=== PATIENT | female | born 1970 | race Caucasian/White ===

== ENCOUNTER → 2016-09-18 | Outpatient (CLI) | payer BC ==
--- NOTE | 2016-09-18 09:05 | REP ---
Clinical: Lower back pain. Technique: AP, lateral, bilateral oblique and coned-down views of the lumbosacral spine. Comparison: 09/26/2001. Findings: Mild chronic levoconvex scoliosis is again appreciated and unchanged. There is no evidence for spondylolysis or spondylolisthesis. Alignment and lordosis in the sagittal plane is stable and normal. Mild disc space narrowing and endplate sclerosis at the L5-S1 level is similar to prior examination. Remainder examination is normal for age. Impression: Chronic levoconvex scoliosis unchanged. Mild disc space narrowing and endplate sclerosis at the L5-S1 level.
== END ==
LOC: M CLY 07:59
PROVIDERS: ATTEND Family Medicine
DX: M41.9 Scoliosis, unspecified (principal)

== ENCOUNTER → 2017-04-14 | Outpatient (REF) | payer BC | LOC: M SFHCCLAY 09:11 | PROVIDERS: ATTEND Family Medicine | DX: J06.9 Acute upper respiratory infection, unspecified (principal) ==

== ENCOUNTER → 2018-08-19 | Outpatient (REF) | payer BC ==
[2018-08-19 13:02] LABS: HEMATOCRIT 40.4 % (36.0-47.0); HEMOGLOBIN 13.6 g/dl (12.0-15.5); MEAN CORPUSCULAR HEMOGLOBIN 29.2 pg (27.0-33.0); MEAN CORPUSCULAR HGB CONC 33.7 g/dl (32.0-36.5); MEAN CORPUSCULAR VOLUME 86.7 fl (80.0-96.0); PLATELET COUNT, AUTOMATED 295 10^3/uL (150-450); RED BLOOD COUNT 4.66 10^6/uL (4.00-5.40); WHITE BLOOD COUNT 9.3 10^3/uL (4.0-10.0)
[2018-08-19 13:21] LABS: ALBUMIN 3.6 GM/DL (3.2-5.2); ALT/SGPT 20 U/L (12-78); BILIRUBIN,TOTAL 0.3 MG/DL (0.2-1.0); BLOOD UREA NITROGEN 10 MG/DL (7-18); CALCIUM LEVEL 8.5 MG/DL (8.5-10.1); CARBON DIOXIDE LEVEL 26 MEQ/L (21-32); CHLORIDE LEVEL 105 MEQ/L (98-107); CHOLESTEROL LEVEL 204 MG/DL (<200); CHOLESTEROL RISK RATIO 3.849 (<5); CREATININE FOR GFR 0.74 MG/DL (0.55-1.30); GLOMERULAR FILTRATION RATE > 60.0 (>58); GLUCOSE, FASTING 102 MG/DL (70-100); HDL CHOLESTEROL 53 MG/DL (>40); LDL CHOLESTEROL 129 MG/DL (<100); NON-HDL-C 151 MG/DL; POTASSIUM SERUM 4.1 MEQ/L (3.5-5.1); SODIUM LEVEL 138 MEQ/L (136-145); TOTAL PROTEIN 6.9 GM/DL (6.4-8.2); TRIGLYCERIDES LEVEL 109 MG/DL (<150)
== END ==
LOC: M SFHCCLAY 08:37
PROVIDERS: ATTEND Nurse Practitioner Family
DX: J45.909 Unspecified asthma, uncomplicated (principal); Z13.6 Encounter for screening for cardiovascular disorders; Z13.29 Encounter for screening for other suspected endocrine disorder

== ENCOUNTER → 2018-12-12 | Outpatient (REF) | payer BC ==
[2018-12-12 11:31] LABS: ALBUMIN 3.6 GM/DL (3.2-5.2); ALT/SGPT 19 U/L (12-78); BILIRUBIN,TOTAL 0.4 MG/DL (0.2-1.0); BLOOD UREA NITROGEN 13 MG/DL (7-18); CALCIUM LEVEL 8.7 MG/DL (8.5-10.1); CARBON DIOXIDE LEVEL 26 MEQ/L (21-32); CHLORIDE LEVEL 108 MEQ/L (98-107); CHOLESTEROL LEVEL 204 MG/DL (<200); CHOLESTEROL RISK RATIO 3.187 (<5); CREATININE FOR GFR 0.77 MG/DL (0.55-1.30); GLOMERULAR FILTRATION RATE > 60.0 (>58); GLUCOSE, FASTING 93 MG/DL (70-100); HDL CHOLESTEROL 64 MG/DL (>40); LDL CHOLESTEROL 117 MG/DL (<100); NON-HDL-C 140 MG/DL; POTASSIUM SERUM 4.1 MEQ/L (3.5-5.1); SODIUM LEVEL 139 MEQ/L (136-145); TOTAL PROTEIN 7.2 GM/DL (6.4-8.2); TRIGLYCERIDES LEVEL 114 MG/DL (<150)
== END ==
LOC: M SFHCCLAY 08:42
PROVIDERS: ATTEND Family Medicine
DX: E78.2 Mixed hyperlipidemia (principal)

== ENCOUNTER → 2019-01-18 | Outpatient (CLI) | payer BC ==
--- NOTE | 2019-01-23 07:58 | ECHO ---
DATE OF STUDY: 01/18/2019 REFERRING PHYSICIAN: Dr. Erick Betancur INDICATION: Chemotherapy drugs that may affect the heart. HEIGHT: 64 inches. WEIGHT: 147 pounds. 2D MEASUREMENTS: Left atrium 3.2 cm Ventricular septum 0.76 cm Posterior wall 0.92 cm Left ventricle diastole 3.9 cm Aortic root 2.7 cm Inferior vena cava 1.3 cm ( more than 50% respiratory variation) DOPPLER MEASUREMENTS: LVOT velocity 107 cm/s LVOT VTI 20.9 cm Mitral E velocity 57.7 cm/s Mitral A velocity 65.0 cm/s Mitral deceleration time 229 ms Trace tricuspid regurgitation. Estimated right ventricle systolic pressure 26 mmHg assuming a right atrial pressure of 5 mmHg. Very mild pulmonic regurgitation Pulmonary artery acceleration time was 8 ms. MITRAL ANNULAR TISSUE DOPPLER: E prime septal 8.3 cm/s E prime lateral 14.4 cm/s DESCRIPTION: Rhythm was sinus. Image quality was fair. This was a 2D, M mode, color flow Doppler and pulse wave Doppler examination and included mitral annular tissue Doppler. CONCLUSIONS: 1. Normal left ventricle internal dimensions and wall thickness. Normal regional LV wall motion and wall thickening. Normal LV systolic function. LVEF 68% (3D). Normal LV diastolic function. 2. No pericardial effusion. 3. Very mild aortic valve sclerosis of a three-cuspid aortic valve. No aortic regurgitation. 4. Otherwise, normal appearing echocardiogram Doppler findings. MTDD
== END ==
LOC: M CARPUL 15:31
PROVIDERS: ATTEND Internal Medicine
DX: C50.412 Malignant neoplasm of upper-outer quadrant of left female breast (principal)

== ENCOUNTER → 2019-06-20 | Outpatient (CLI) | payer BC ==
--- NOTE | 2019-06-20 14:17 | ECHO ---
DATE OF PROCEDURE: 06/20/2019 REFERRING PHYSICIAN: Dr. Erick Betancur DO INDICATION: Chemotherapy. HEIGHT: 160 cm. WEIGHT: 68 kg. DIMENSIONS: IVS 0.7 LV 4.2 LVPW 0.9 LA 3.6 Aorta 2.6 IVC 1.2 Mitral E wave velocity 69, A wave 63 E prime septal 9.6 E prime lateral 11.0 FINDINGS: The study is of acceptable technical quality. The patient is in sinus rhythm. Left ventricle is of normal size and systolic function, I do not appreciate any segmental wall motion abnormalities. Computer calculated LVEF was 69%, which seems believable. Right ventricle also appears normal size and systolic function. Both atria appear normal. Aortic valve has three cusps and has normal mobility. Mitral valve is freely mobile. There is poorly visualized echodensity attached to anterior mitral leaflet, which in appropriate clinical setting potentially could represent small vegetation. Tricuspid valve appears normal. Pulmonic valve was not seen. Trace pericardial effusion is noted. Inferior vena cava is normal size. Aortic root and aortic arch appear normal. Doppler interrogation reveals competent aortic and mitral valve. There is trace tricuspid insufficiency. Calculated pulmonary artery pressure is within normal limits. Mitral inflow pattern and tissue Doppler imaging of mitral annulus reveal normal diastolic function. CONCLUSIONS: 1. Study is of acceptable technical quality. 2. Normal LV size with normal LV systolic and diastolic function. 3. No hemodynamically significant valvular disease. 4. Poorly visualized echodensity attached to anterior mitral leaflet that in appropriate clinical setting could represent vegetation. Due to limited visualization I cannot rule out that this actually represents an artifact. 5. Trace pericardial effusion. 6. Normal central venous pressure and likely normal pulmonary artery pressure under COMMENTS: If high clinical suspicion for bacterial endocarditis further evaluation is warranted. MTDD
== END ==
LOC: M CARPUL 11:09
PROVIDERS: ATTEND Internal Medicine
DX: C50.412 Malignant neoplasm of upper-outer quadrant of left female breast (principal)

== ENCOUNTER → 2019-07-27 | Outpatient (CLI) | payer BC ==
[~2019-07-27] MED LIST: CALC-333 PO; DECA4TAB PO; FLINCHW16 PO; OCUV1CAP4 PO; OLIV250C PO; PROB1CAP PO; SOOT1DRO OP; [UNRECOGNIZED DRUG - CODE] PO; [UNRECOGNIZED DRUG - CODE] PO
--- NOTE | 2019-07-29 09:40 | RADONC ---
RADIATION ONCOLOGY CONSULTATION NOTE DATE: 07/27/2019 CHART #: [id number] DIAGNOSIS: Left breast cancer. STAGE: I A, pT1c, pN1c, cM0, moderately differentiated grade 2, ER positive, AR positive, HER2 equivocal, Oncotype score 13. ECOG PERFORMANCE STATUS: 0. CONSULTATION NOTE: Ms. Naik is a very pleasant 49-year-old white female with the diagnosis of what appears to be a pathologic stage I A, pT1c, pN1c, cM0, grade 2, moderately differentiated infiltrating ductal carcinoma of the left breast who is presenting to us today status post right simple nipple sparing mastectomy and right sentinel lymph node axillary biopsy as well as left nipple sparing mastectomy and left axillary node dissection after positive sentinel nodes, as well as, systemic therapy consisting of carboplatin. She is now presenting for consideration of postoperative radiation therapy in attempt to increase the likelihood of achieving local control. HISTORY OF PRESENT ILLNESS: The patient was in her usual state of health until routine mammogram was done on 12/16/2018 and showed a solid mass detected on ultrasound in the left breast in the 2 o'clock position. Subsequent surgery was done and a 1.4 cm to 2 cm invasive ductal carcinoma was seen in the left breast. The tumor was moderately differentiated. The nipple margin was negative for carcinoma. There was a 0.2 cm margin superficially. DCIS was less than 0.1 cm from the nipple margin. Metastatic carcinoma involved at least three axillary lymph nodes including two sentinel lymph nodes. The sentinel lymph node deposits measured 0.9 cm each in two lymph nodes. A third deposit spanned 0.5 cm. There was thought to be a possible fourth lauryn metastasis as well. Extranodal extension was present and associated with the sentinel node. HER2 was positive by FISH. The patient had undergone a nipple sparing mastectomy. She was subsequently seen by Erick Betancur DO at [facility] and has undergone systemic therapy. She reports that her last chemotherapy was on July 21 and she is now presenting to us for discussion of postoperative radiation therapy in attempt to increase the likelihood of achieving local control. PAST MEDICAL HISTORY: The patient's past medical history is positive for a miscarriage as well as D and Cs. She has been in otherwise good health. ALLERGIES: The patient is allergic to CIPRO. SOCIAL HISTORY: The patient does not smoke cigarettes. She drinks alcohol socially. FAMILY HISTORY: The patient's family history is noncontributory. The patient was adopted and does not know her family history. REVIEW OF SYSTEMS: The patient's review of systems is positive for some decreased energy, but is otherwise noncontributory. Denies nausea, vomiting, fevers, chills, night sweats, diplopia, headaches, anxiety or depression, anorexia, weight loss, visual disturbances, chest pain, urinary or bowel difficulties, bone pain, or neurological problems. PHYSICAL EXAMINATION: The patient is a well-developed, well-nourished female in no acute distress. HEENT exam is normocephalic, atraumatic. Extraocular movements are intact. There is no palpable cervical, supraclavicular, infraclavicular, axillary, or inguinal lymphadenopathy present. Lungs are clear to auscultation and percussion. Heart has a regular rate and rhythm. Abdomen is benign with no hepatosplenomegaly, masses, or tenderness. Breast examination reveals no masses or discharge bilaterally. Skeletal examination reveals no tenderness to pressure or percussion of the bony skeleton. Extremities reveal no clubbing, cyanosis, or edema. Neurologic exam is grossly intact, as is the remainder of the physical examination. MEDICAL NECESSITY: IMRT/IGRT is clinically indicated for a highly conformal dose planning regard. The target volume is in close proximity to critical structures, such as the heart, lungs, spinal cord, stomach, and esophagus. The volume of interest must be covered with narrow margins to adequately protect immediately adjacent structures. The plan requires interpretations of complex testing such as CT localization. As noted above, special planning (IMRT) and localizing [IGRT) is required and essential to maximize protect sensitive normal tissue structures which cannot be accomplished using conventional three-dimensional planning. ASSESSMENT: I do believe this patient is a candidate for external beam radiation therapy and I have so informed her. I have discussed with this patient in detail the potential benefits as well as possible acute and chronic sequelae of external beam radiation therapy. We discussed logistics of treatment planning, simulation and subsequent fractionated daily radiation treatments. I specifically believe this patient is a candidate for treatment in light of the fact that she may have four axillary lymph nodes, but more importantly that there was extranodal extension present. In addition, she has very close margins, especially just underneath the nipple and superficially for both DCIS and invasive carcinoma. I believe this patient overall would benefit with increased local control with radiation. Thank you for allowing us to participate in the care of this very pleasant woman. If I could be of any further assistance or provide you with any information, please feel free to contact me at anytime. I am scheduling the patient for simulation next week so that the treatment plan can be completed in time to begin her in the mid week of August 14. The patient is requesting that we please complete therapy by earlier in September so that she can go with her daughter on spring to [place]. We will make every attempt to accommodate here without sacrificing quality of care. cc: DO Sarah Sheehan MD Edward J Wyluda, DO
== END ==
LOC: M ONCR 13:45
PROVIDERS: ATTEND Radiology Radiation Oncology
DX: C50.912 Malignant neoplasm of unspecified site of left female breast (principal)

== ENCOUNTER 2019-08-25 08:59 | Outpatient (RCR) | payer BC ==
--- NOTE | 2019-08-02 14:15 | RADONC ---
RADIATION ONCOLOGY SIMULATION NOTE DATE OF SERVICE: 08/02/2019 RADIATION ONCOLOGY SIMULATION NOTE: Ms. Naik was taken to the CT scan for CT simulation of her left breast and lymph node drainage site field. CT was accomplished without difficulty or discomfort. Radiation treatment planning is underway, and radiation treatments will begin subsequently. An immobilization device was created and will be used throughout the course of treatment. It was created without difficulty or discomfort. I was physically present throughout the course of CT simulation.
--- NOTE | 2019-08-22 08:58 | RADONC ---
RADIATION ONCOLOGY PROGRESS NOTE DATE: 08/21/2019 CHART #: [id number] Ms. Naik is presently at a dose of 720 cGy to her left breast and is tolerating treatments quite well at this point with no complaints related to her radiation therapy. She has no breast or bone pain. REVIEW OF SYSTEMS: The patient's review of systems is noncontributory. Denies nausea, vomiting, fevers, chills, night sweats, diplopia, headaches, anxiety or depression, anorexia, weight loss, visual disturbances, chest pain, urinary or bowel difficulties, bone pain, or neurological problems. PHYSICAL EXAMINATION: The patient's skin is in excellent condition with no evidence of radiation change present. There is no moist or dry desquamation. The remainder of her physical exam remains unchanged. Ms. Naik is tolerating treatments quite well and radiation will continue as scheduled.
== END 2019-08-26 ==
LOC: M ONCR 08:59
PROVIDERS: ATTEND Radiology Radiation Oncology
DX: C50.412 Malignant neoplasm of upper-outer quadrant of left female breast (principal)

== ENCOUNTER → 2019-09-04 | Outpatient (CLI) | payer BC ==
--- NOTE | 2019-09-04 10:43 | REP ---
Soft-tissue ultrasound right breast. 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 Tender to palpation a small palpable area right upper breast. No comparison breast sonography. Findings: Scanning in the upper outer breast on the right in the area of the palpable abnormality and pain shows normal subcutaneous tissue overlying the tissue area director of home health sales appliance. No cyst, mass or adenopathy is seen. No acoustic shadowing is noted. Impression: BIRADS category 2 benign findings. Clinical followup is advised. Electronically Signed by Damian Dasilva MD 09/04/2019 10:57 A
== END ==
LOC: M RAD 09:09
PROVIDERS: ATTEND Nurse Practitioner
DX: N63.0 Unspecified lump in unspecified breast (principal)

== ENCOUNTER 2019-09-21 07:58 | Outpatient (RCR) | payer BC ==
--- NOTE | 2019-08-28 16:28 | RADONC ---
RADIATION ONCOLOGY PROGRESS NOTE DATE: 08/28/2019 CHART NUMBER: [id number] PROGRESS NOTE Ms. Naik is presently at a dose of 1620 cGy to her left breast and is tolerating treatments quite well at this point with no complaints related to her radiation therapy. She is having no breast or bone pain. REVIEW OF SYSTEMS: The patient's review of systems is noncontributory. Denies nausea, vomiting, fevers, chills, night sweats, diplopia, headaches, anxiety or depression, anorexia, weight loss, visual disturbances, chest pain, urinary or bowel difficulties, bone pain, or neurological problems. PHYSICAL EXAMINATION: The patient's skin is in excellent condition with no evidence of moist or dry desquamation. The remainder of her physical exam remains unchanged. Ms. Naik is tolerating treatments quite well and radiation will continue as scheduled.
--- NOTE | 2019-09-05 14:10 | RADONC ---
RADIATION ONCOLOGY PROGRESS NOTE DATE OF SERVICE: 09/04/2019 CHART NUMBER: [id number]. PROGRESS NOTE: Ms. Naik is presently at a dose of 2520 cGy to her left breast and is tolerating treatments quite well at this point with no complaints related to her radiation therapy. She has no breast or bone pain. REVIEW OF SYSTEMS: The patient's review of systems is noncontributory. She denies nausea, vomiting, fevers, chills, night sweats, diplopia, headaches, anxiety or depression, anorexia, weight loss, visual disturbances, chest pain, urinary or bowel difficulties, bone pain, or neurological problems. PHYSICAL EXAMINATION: The patient's skin is in good condition with no evidence of moist or dry desquamation. The remainder of her physical exam remains unchanged. Mr. Naik is tolerating treatments quite well, and radiation will continue as scheduled.
--- NOTE | 2019-09-12 08:35 | RADONC ---
RADIATION ONCOLOGY DATE: 09/11/2019 CHART #: [id number] Neha Naik with a diagnosis of left breast cancer is currently receiving local regional radiotherapy and she has achieved a dose of 4860 cGy to the entire breast. She is tolerating her radiotherapy reasonably well, denying any significant nausea, vomiting, coughing, sputum production, hemoptysis, or significant skin irritation. Her energy level is perhaps somewhat diminished, but she is still able to maintain most day-to-day activities without any alteration of her lifestyle. REVIEW OF SYSTEMS: As above with no significant nausea, vomiting, coughing, sputum production or hemoptysis. PHYSICAL EXAMINATION: She denies any significant shortness of breath. Lungs are clear. Heart: Regular, without murmurs. Abdomen without evidence of hepatomegaly, masses or deep abdominal tenderness. Skin: A tanning affect is noted without desquamation. IMPRESSION: Tolerating therapy well. PLAN: A sample of Aquaphor was given to the patient for her skin care and treatments will continue.
--- NOTE | 2019-09-18 12:01 | RADONC ---
RADIATION ONCOLOGY PROGRESS NOTE DATE: 09/18/2019 CHART NUMBER: [id number] PROGRESS NOTE: Ms. Naik is presently at a dose of 4320 cGy to her left breast and is tolerating treatments quite well at this point with no difficulties related to her radiation therapy. REVIEW OF SYSTEMS: The patient's review of systems is noncontributory except for some soreness in the left breast. Denies nausea, vomiting, fevers, chills, night sweats, diplopia, headaches, anxiety or depression, anorexia, weight loss, visual disturbances, chest pain, urinary or bowel difficulties, bone pain, or neurological problems. PHYSICAL EXAMINATION: Physical examination was deferred secondary to COVID virus precautions. Ms. Naik is tolerating treatments quite well and radiation will continue as scheduled.
--- NOTE | 2019-09-21 14:25 | RADONC ---
RADIATION ONCOLOGY TREATMENT SUMMARY DATE: 09/21/2019 CHART NUMBER: [id number] DIAGNOSIS: Left breast cancer. STAGE: IA, pT1c, pN1c, cM0, moderately differentiated grade 2, ER positive, [place] positive, HER2 equivocal, Oncotype score 13. ECOG PERFORMANCE STATUS: 0. TREATMENT SUMMARY: Ms. Naik a delightful 49-year-old white female with the diagnosis of a pathologic stage IA, pT1c, pN1c, cM0, grade 2, moderately differentiated infiltrating ductal carcinoma of the left breast who presented to us status post right simple nipple sparing mastectomy and right sentinel lymph node biopsy as well as chemotherapy consisting of carboplatin for consideration of postoperative radiation therapy for conservative breast management. We treated the patient to her left breast for a total dose of 4860 cGy delivered in 27 fractions of 180 cGy each over 36 elapsed days from 08/16/2019 to 09/21/2019. The patient's breast and lymph node drainage region was treated on a linear accelerator utilizing a 6 MV photon beam via IMRT/IGRT. Ms. Naik tolerated her treatments quite well with no difficulties related to her radiation therapy. The patient is scheduled to see me again in 1 month for further followup. She will also continue to be followed by her other physicians as well. Thank you for allowing us to participate in the care of this very pleasant woman, if I could be of any further assistance or provide you with any information, please free to contact me anytime. cc: DO Sarah Sheehan MD Edward J Wyluda, DO
== END 2019-09-26 ==
LOC: M ONCR 07:58
PROVIDERS: ATTEND Radiology Radiation Oncology
DX: C50.412 Malignant neoplasm of upper-outer quadrant of left female breast (principal)

== ENCOUNTER → 2020-06-11 | Outpatient (REF) | payer BC ==
[~2020-06-11] MED LIST changes: +BACI1CAP4 PO; -PROB1CAP PO
[2020-06-11 12:52] LABS: ALBUMIN 3.5 GM/DL (3.2-5.2); ALT/SGPT 26 U/L (12-78); BILIRUBIN,TOTAL 0.3 MG/DL (0.2-1.0); BLOOD UREA NITROGEN 16 MG/DL (7-18); CALCIUM LEVEL 8.9 MG/DL (8.5-10.1); CARBON DIOXIDE LEVEL 28 MEQ/L (21-32); CHLORIDE LEVEL 109 MEQ/L (98-107); CHOLESTEROL LEVEL 218 MG/DL (<200); CHOLESTEROL RISK RATIO 3.406 (<5); CREATININE FOR GFR 0.73 MG/DL (0.55-1.30); GLOMERULAR FILTRATION RATE > 60.0 (>51); GLUCOSE, FASTING 101 MG/DL (70-100); HDL CHOLESTEROL 64 MG/DL (>40); LDL CHOLESTEROL 129 MG/DL (<100); NON-HDL-C 154 MG/DL; POTASSIUM SERUM 4.5 MEQ/L (3.5-5.1); SODIUM LEVEL 142 MEQ/L (136-145); TOTAL PROTEIN 6.6 GM/DL (6.4-8.2); TRIGLYCERIDES LEVEL 127 MG/DL (<150)
== END ==
LOC: M SFHCCLAY 07:05
PROVIDERS: ATTEND Family Medicine
DX: E78.2 Mixed hyperlipidemia (principal)

== ENCOUNTER → 2021-09-02 | Outpatient (REF) | payer BC ==
[2021-09-02 12:05] LABS: ALBUMIN 3.5 GM/DL (3.2-5.2); ALT/SGPT 25 U/L (12-78); BILIRUBIN,TOTAL 0.4 MG/DL (0.2-1.0); BLOOD UREA NITROGEN 15 MG/DL (7-18); CALCIUM LEVEL 8.8 MG/DL (8.5-10.1); CARBON DIOXIDE LEVEL 28 MEQ/L (21-32); CHLORIDE LEVEL 108 MEQ/L (98-107); CHOLESTEROL LEVEL 170 MG/DL (<200); CHOLESTEROL RISK RATIO 3.269 (<5); CREATININE FOR GFR 0.83 MG/DL (0.55-1.30); GLOMERULAR FILTRATION RATE > 60.0 (>51); GLUCOSE, FASTING 92 MG/DL (70-100); HDL CHOLESTEROL 52 MG/DL (>40); LDL CHOLESTEROL 97 MG/DL (<100); NON-HDL-C 118 MG/DL; POTASSIUM SERUM 4.6 MEQ/L (3.5-5.1); SODIUM LEVEL 140 MEQ/L (136-145); TOTAL PROTEIN 6.3 GM/DL (6.4-8.2); TRIGLYCERIDES LEVEL 105 MG/DL (<150)
[2021-09-02 12:42] LABS: HEMOGLOBIN A1c 5.7 %
== END ==
LOC: M SFHCCLAY 07:44
PROVIDERS: ATTEND Family Medicine
DX: E78.2 Mixed hyperlipidemia (principal); R73.01 Impaired fasting glucose

== ENCOUNTER → 2021-12-21 | Outpatient (CLI) | payer BC ==
[~2021-12-21] MED LIST changes: +CALCTAB41 PO; +TAMO20TA8 PO
== END ==
LOC: M LABSMTC 09:01
PROVIDERS: ATTEND Anesthesiology
DX: Z01.812 Encounter for preprocedural laboratory examination (principal)

== ENCOUNTER → 2022-03-22 | Outpatient (CLI) | payer BC ==
[~2022-03-22] MED LIST changes: +VITA100093 PO
== END ==
LOC: M LABSMTC 11:19
PROVIDERS: ATTEND Anesthesiology
DX: Z01.818 Encounter for other preprocedural examination (principal); Z11.52 Encounter for screening for COVID-19

== ENCOUNTER → 2022-11-06 | Outpatient (REF) | payer BC ==
[2022-11-06 11:44] LABS: BASO # 0.1 10^3/uL (0.0-0.2); BASO % 0.8 % (0.0-1.0); EOS # 0.1 10^3/uL (0.0-0.5); EOS % 1.7 % (0.0-3.0); HEMOGLOBIN 13.1 g/dl (12.0-15.5); LYMPH # 1.8 10^3/uL (1.5-5.0); LYMPH % 28.6 % (24.0-44.0); MEAN CORPUSCULAR HEMOGLOBIN 29.2 pg (27.0-33.0); MEAN CORPUSCULAR HGB CONC 32.8 g/dl (32.0-36.5); MEAN CORPUSCULAR VOLUME 89.3 fl (80.0-96.0); MONO # 0.5 10^3/uL (0.0-0.8); MONO % 8.1 % (2.0-8.0); NEUTROPHILS # 3.9 10^3/uL (1.5-8.5); NEUTROPHILS % 60.5 % (36.0-66.0); PLATELET COUNT, AUTOMATED 251 10^3/uL (150-450); RED BLOOD COUNT 4.48 10^6/uL (4.00-5.40); WHITE BLOOD COUNT 6.4 10^3/uL (4.0-10.0)
[2022-11-06 11:50] LABS: ALBUMIN 3.8 G/DL (3.2-5.2); ALKALINE PHOSPHATASE 59 U/L (46-116); ALT/SGPT 17 U/L (7.0-40); AST/SGOT 21 U/L (<34); BILIRUBIN,TOTAL 0.6 MG/DL (0.3-1.2); BLOOD UREA NITROGEN 17 MG/DL (9-23); CALCIUM LEVEL 8.5 MG/DL (8.5-10.1); CARBON DIOXIDE LEVEL 27 MMOL/L (20-31); CHLORIDE LEVEL 105 MMOL/L (98-107); CHOLESTEROL LEVEL 172 MG/DL (<200); CHOLESTEROL RISK RATIO 2.75 (<5); GLOMERULAR FILTRATION RATE > 60.0 (>51); GLUCOSE, FASTING 101 MG/DL (60-100); HDL CHOLESTEROL 62.5 MG/DL (>40); LDL CHOLESTEROL 91.7 MG/DL (<100); NON-HDL-C 109.5 MG/DL; POTASSIUM SERUM 4.4 MMOL/L (3.5-5.1); SODIUM LEVEL 139 MMOL/L (136-145); TOTAL PROTEIN 6.6 G/DL (5.7-8.2); TRIGLYCERIDES LEVEL 89 MG/DL (<150)
[2022-11-06 12:25] LABS: HEMOGLOBIN A1c 5.6 % (4.0-6.0)
== END ==
LOC: M SFHCCLAY 07:14
PROVIDERS: ATTEND Family Medicine
DX: E78.2 Mixed hyperlipidemia (principal); R73.01 Impaired fasting glucose

== ENCOUNTER → 2023-01-29 | Outpatient (CLI) | payer BC | LOC: M RAD 07:41 | PROVIDERS: ATTEND Otolaryngology | DX: J32.9 Chronic sinusitis, unspecified (principal) ==

== ENCOUNTER → 2023-11-05 | Outpatient (REF) | payer BC ==
[2023-11-05 18:22] LABS: BASO % 0.5 % (0.0-1.0); EOS # 0.1 10^3/uL (0.0-0.5); EOS % 1.7 % (0.0-3.0); HEMATOCRIT 39.9 % (36.0-47.0); HEMOGLOBIN 13.2 g/dl (12.0-15.5); LYMPH # 1.7 10^3/uL (1.5-5.0); LYMPH % 28.5 % (24.0-44.0); MEAN CORPUSCULAR HEMOGLOBIN 29.8 pg (27.0-33.0); MEAN CORPUSCULAR HGB CONC 33.1 g/dl (32.0-36.5); MEAN CORPUSCULAR VOLUME 90.1 fl (80.0-96.0); MONO # 0.4 10^3/uL (0.0-0.8); MONO % 7.2 % (2.0-8.0); NEUTROPHILS # 3.7 10^3/uL (1.5-8.5); NEUTROPHILS % 61.8 % (36.0-66.0); PLATELET COUNT, AUTOMATED 205 10^3/uL (150-450); RED BLOOD COUNT 4.43 10^6/uL (4.00-5.40)
[2023-11-05 18:25] LABS: ALBUMIN 3.6 G/DL (3.2-5.2); ALKALINE PHOSPHATASE 66 U/L (46-116); ALT/SGPT 20 U/L (7.0-40); AST/SGOT 20 U/L (<34); BILIRUBIN,TOTAL 0.5 MG/DL (0.3-1.2); BLOOD UREA NITROGEN 13 MG/DL (9-23); CALCIUM LEVEL 9.1 MG/DL (8.5-10.1); CARBON DIOXIDE LEVEL 28 MMOL/L (20-31); CHLORIDE LEVEL 106 MMOL/L (98-107); CHOLESTEROL LEVEL 175 MG/DL (<200); CHOLESTEROL RISK RATIO 2.97 (<5); CREATININE FOR GFR 0.71 MG/DL (0.55-1.30); GLOMERULAR FILTRATION RATE > 60.0 (>51); GLUCOSE, FASTING 103 MG/DL (60-100); HDL CHOLESTEROL 58.9 MG/DL (>40); LDL CHOLESTEROL 96.7 MG/DL (<100); NON-HDL-C 116.1 MG/DL; POTASSIUM SERUM 4.5 MMOL/L (3.5-5.1); SODIUM LEVEL 139 MMOL/L (136-145); TOTAL PROTEIN 6.3 G/DL (5.7-8.2); TRIGLYCERIDES LEVEL 97 MG/DL (<150)
[2023-11-05 18:34] LABS: HEMOGLOBIN A1c 5.3 % (4.0-6.0)
== END ==
LOC: M SFHCCLAY 09:31
PROVIDERS: ATTEND Family Medicine
DX: E78.2 Mixed hyperlipidemia (principal); R73.01 Impaired fasting glucose

== ENCOUNTER → 2024-06-18 | Outpatient (REF) | payer BC | LOC: M LAB REF 10:00 | PROVIDERS: ATTEND Registered Nurse | DX: J06.9 Acute upper respiratory infection, unspecified (principal) ==

== ENCOUNTER → 2024-08-24 | Outpatient (REF) | payer BC ==
[2024-08-24 12:18] LABS: BLOOD UREA NITROGEN 15 MG/DL (9-23); CALCIUM LEVEL 9.8 MG/DL (8.5-10.1); CARBON DIOXIDE LEVEL 26 MMOL/L (20-31); CHLORIDE LEVEL 105 MMOL/L (98-107); CREATININE FOR GFR 0.73 MG/DL (0.55-1.30); GLOMERULAR FILTRATION RATE > 60.0 (>51); GLUCOSE, FASTING 98 MG/DL (60-100); POTASSIUM SERUM 4.9 MMOL/L (3.5-5.1); SODIUM LEVEL 141 MMOL/L (136-145)
[2024-08-24 13:33] LABS: Trichomonas vaginalis (AMP) NOT DETECTED (NEGATIVE)
[2024-08-24 13:57] LABS: GC DNA AMPLIFICATION NEGATIVE (NEGATIVE)
== END ==
LOC: M SFHCCLAY 07:54
PROVIDERS: ATTEND Family Medicine
DX: R39.89 Other symptoms and signs involving the genitourinary system (principal); R19.00 Intra-abdominal and pelvic swelling, mass and lump, unspecified site

== ENCOUNTER → 2024-08-31 | Outpatient (CLI) | payer BC ==
[~2024-08-31] MED LIST changes: +ISOVUE-370 76% 100ML VIAL As Ordered ONE
== END ==
LOC: M RAD 16:41
PROVIDERS: ATTEND Family Medicine
DX: R39.89 Other symptoms and signs involving the genitourinary system (principal); R19.00 Intra-abdominal and pelvic swelling, mass and lump, unspecified site
CPT/HCPCS: 72193; Q9967

== ENCOUNTER → 2024-10-12 | Outpatient (CLI) | payer BC ==
[~2024-10-12] MED LIST changes: -ISOVUE-370 76% 100ML VIAL As Ordered ONE
== END ==
LOC: M WHC 14:43
PROVIDERS: ATTEND Internal Medicine
DX: C50.512 Malignant neoplasm of lower-outer quadrant of left female breast (principal); R59.0 Localized enlarged lymph nodes